=== PATIENT | female | born 1990 | race Caucasian/White ===

== ENCOUNTER 2018-07-29 19:35 | Emergency (ER) | payer BC, OTHER ==
[~2018-07-29] VITALS: Ht 170.2 cm; Wt 126.0 kg
[~2018-07-29 19:35] MED LIST: CLIN-96 PO; LISI-600 PO; ONDA4TAB6 PO; TRIA1CAP6 PO
--- NOTE | 2018-07-29 20:00 | NUR ---
Pt's brought pt in due to SI. Pt has had medication change which she is not tolerating and cannot get in to see soon enoughgricelda so was brought here.
[2018-07-29] MEDS ORDERED: RISP2TAB3 PO (20:11)
[2018-07-29] MEDS ORDERED: LOSA100T57 PO (20:11)
[2018-07-29] MEDS ORDERED: ESCI20TA38 PO (20:11)
[2018-07-29] MEDS ORDERED: RISP1TAB3 PO (20:11)
[2018-07-29] MEDS ORDERED: ALBU18HF2 IH (20:13)
[2018-07-29 20:16] LABS: BASOPHILS % (AUTO) 0.5 % (0-1); EOSINOPHILS # (AUTO) 0.2 X10'3 (0-0.9); EOSINOPHILS % (AUTO) 1.9 % (0-6); HEMATOCRIT 41.7 % (35.0-45.0); HEMOGLOBIN 14.6 g/dl (12.0-16.0); LYMPHOCYTES # (AUTO) 3.4 X10'3 (1.1-4.8); LYMPHOCYTES % (AUTO) 33.3 % (21-51); MEAN CORPUSCULAR HEMOGLOBIN 29.8 PG (27.0-31.0); MEAN CORPUSCULAR VOLUME 85.1 FL (78-98); MEAN PLATELET VOLUME 8.3 FL (7.4-10.4); MONOCYTES # (AUTO) 0.7 X10'3 (0-0.9); MONOCYTES % (AUTO) 6.8 % (2-12); NEUTROPHILS # (AUTO) 5.9 X10'3 (1.8-7.7); NEUTROPHILS % (AUTO) 57.5 % (42-75); PLATELET COUNT 302 X10'3 (140-440); RED CELL DISTRIBUTION WIDTH 12.9 % (11.5-14.5); WHITE BLOOD COUNT 10.2 X10'3 (4.5-11.0)
[2018-07-29 20:25] LABS: ALANINE AMINOTRANSFERASE 79 U/L (12-78); ALBUMIN 3.8 G/DL (3.4-5.0); ALBUMIN/GLOBULIN RATIO 0.9 (1.1-1.5); ALKALINE PHOSPHATASE 86 IU/L (46-116); ANION GAP 10 (8-16); ASPARTATE AMINO TRANSFERASE 34 U/L (10-37); BILIRUBIN,TOTAL 0.2 MG/DL (0.1-1.0); BLOOD UREA NITROGEN 12 MG/DL (7-18); BUN/CREATININE RATIO 16.4 (6.6-38.0); CALCIUM 9.3 MG/DL (8.5-10.1); CHLORIDE 106 MMOL/L (99-107); CREATININE 0.73 MG/DL (0.40-0.90); GLUCOSE 101 MG/DL (70-104); POTASSIUM 3.7 MMOL/L (3.5-5.1); SODIUM 141 MMOL/L (135-145); TOTAL CARBON DIOXIDE 25.1 MMOL/L (24-32); TOTAL PROTEIN 7.9 G/DL (6.4-8.2); eGFR > 90 ML/MIN
[2018-07-29 20:34] LABS: ETHANOL < 0.010 GM/DL (0.0-0.010)
[2018-07-29 20:40] LABS: UA COLLECTION TYPE CLN CATCH MIDSTREAM
[2018-07-29 20:41] LABS: CLARITY,URINE CLEAR (Clear); COLOR,URINE YELLOW (Yellow); GLUCOSE, URINE NEGATIVE (Neg); KETONES,URINE NEGATIVE (Neg); LEUKOCYTE ESTERASE ,URINE NEGATIVE (Neg); NITRITES, URINE NEGATIVE (Neg); OCCULT BLOOD,URINE NEGATIVE (Neg); PROTEIN,URINE NEGATIVE (Neg); UROBILINOGEN,URINE 0.2 E.U/dL (0.2-1.0)
[2018-07-29 20:42] LABS: URINE HCG NEGATIVE (NEG)
[2018-07-29 20:53] LABS: URINE AMPHETAMINE SCREEN NEGATIVE (Neg); URINE BARBITUATE SCREEN NEGATIVE (Neg); URINE BENZODIAZEPINES SCREEN NEGATIVE (Neg); URINE CANNABINOID SCREEN NEGATIVE (Neg); URINE COCAINE SCREEN NEGATIVE (Neg); URINE METHADONE SCREEN NEGATIVE (Neg); URINE OPIATE SCREEN NEGATIVE (Neg); URINE PHENCYCLIDINE SCREEN NEGATIVE (Neg)
[2018-07-29] MEDS ORDERED: risperiDONE 2mg tablet PO SCH (21:00)
--- NOTE | 2018-07-29 21:00 | NUR ---
Pt resting quietly, respirations normal, no s/s of distress.
--- NOTE | 2018-07-29 22:00 | NUR ---
Pt resting quietly, respirations normal, no s/s of distress.
--- NOTE | 2018-07-29 23:00 | NUR ---
Taty martinez in [facility] - 07/30/18 at 0406 by MARIA DEL CARMEN Pt does not want visitors or phone calls at this time.
--- NOTE | 2018-07-29 23:51 | NUR ---
Pt resting quietly, respirations normal, no s/s of distress.
[2018-07-30] MEDS ORDERED: albuterol 2.5 MG/3 ML nebule NEB PRN
--- NOTE | 2018-07-30 01:28 | NUR ---
Pt resting quietly, respirations normal, no s/s of distress.
--- NOTE | 2018-07-30 03:02 | NUR ---
Pt resting quietly, respirations normal, no s/s of distress.
--- NOTE | 2018-07-30 04:06 | NUR ---
Pt resting quietly, respirations normal, no s/s of distress.
--- NOTE | 2018-07-30 04:53 | NUR ---
Pt resting quietly, respirations normal, no s/s of distress.
--- NOTE | 2018-07-30 07:00 | NUR ---
Pt sitting up in bed, calm and cooperative.
[2018-07-30] MEDS: lisinopril 20mg tablet PO SCH ×2 (07:20→07:24)
[2018-07-30] MEDS ORDERED: CHLO25TA2 PO (07:23)
[2018-07-30] MEDS ORDERED: losartan 50mg tablet PO SCH (08:00)
[2018-07-30] MEDS ORDERED: chlorthalidone 25mg tablet PO SCH (08:00)
[2018-07-30] MEDS ORDERED: citalopram 20mg tablet PO SCH (08:00)
[2018-07-30] MEDS ORDERED: risperiDONE 0.5mg tablet PO SCH (08:00)
--- NOTE | 2018-07-30 09:00 | NUR ---
visiting at bedside.
--- NOTE | 2018-07-30 11:00 | NUR ---
Pt visiting with at bedside.
--- NOTE | 2018-07-30 13:00 | NUR ---
Sitting up in bed eating lunch.
--- NOTE | 2018-07-30 13:38 | NUR ---
MARLON FROM [facility] AT BEDSIDE AT THIS TIME TO SPEAK WITH PATIENT. PATIENT CALM AND COOPERATIVE AT THIS TIME, IN VIEW OF STAFF AT ALL TIMES.
[2018-07-30 15:36] VITALS: BP 157/101
== END 2018-07-30 15:38 | disposition home or self-care (01) ==
LOC: EEVIPCON 19:35 → ER 19:40
DX: R45.851 Suicidal ideations (principal); F41.9 Anxiety disorder, unspecified; I10 Essential (primary) hypertension; Z86.14 Personal history of Methicillin resistant Staphylococcus aureus infection; Z98.890 Other specified postprocedural states; Z88.1 Allergy status to other antibiotic agents; Z79.899 Other long term (current) drug therapy
CPT/HCPCS: 36415; 80053; 80305; 80320; 81003; 81025; 84443; 85025; 99284

== ENCOUNTER 2021-04-24 18:57 | Emergency (ER) | payer OTHER ==
[~2021-04-24] VITALS: Ht 170.2 cm; Wt 113.6 kg
[~2021-04-24 18:57] MED LIST changes: +ALBU18HF2 IH; +CHLO25TA2 PO; -CLIN-96 PO; +ESCI20TA39 PO; -LISI-600 PO; +LISI20TA28 PO; +LOSA100T57 PO; -ONDA4TAB6 PO; +RISP1TAB98 PO; +RISP2TAB85 PO; -TRIA1CAP6 PO
[2021-04-24 19:11] VITALS: BP 158/102
== END 2021-04-24 23:47 | disposition left against medical advice (07) ==
LOC: ER 18:57
DX: I10 Essential (primary) hypertension (principal); H53.9 Unspecified visual disturbance; Z53.21 Procedure and treatment not carried out due to patient leaving prior to being seen by health care provider

== ENCOUNTER 2024-11-23 20:41 | Emergency (ER) | payer BC, MEDICAID ==
[~2024-11-23] VITALS: Ht 170.2 cm; Wt 130.8 kg
[~2024-11-23 20:41] MED LIST changes: -LOSA100T57 PO; +LOSA100T58 PO; +RISP-31 PO; +RISP-32 PO; -RISP1TAB98 PO; -RISP2TAB85 PO
[2024-11-23 20:49] VITALS: TEMP 97.5
--- NOTE | 2024-11-23 20:56 | ELECTROCARDIOGRAPH REPORT ---
[facility] Test Date: 2024-11-23 Test Time: 20:54:36 Pat Name: BAYRON NDIAYE Department: EMERGENCY ROOM Room: Gender: F Bar Catcher: PM : 1990 Requested By: CASSIA COSBY Order Number: [id number] Reading MD: Measurements Intervals Pedro Rate: 59 P: 35 [place]: 164 QRS: -25 QRSD: 100 T: 38 QT: 429 QTc: 425 Interpretive Statements Sinus bradycardia Borderline left axis deviation Probable anterior infarct, age indeterminate Baseline wander in lead(s) V4,V5,V6 Please click the below link to view image of tracing.
[2024-11-23 21:17] LABS: MEAN PLATELET VOLUME 7.8 FL (7.4-10.4); RED CELL DISTRIBUTION WIDTH 12.8 % (11.5-14.5)
--- NOTE | 2024-11-23 21:27 | RADIOLOGY REPORT ---
EXAM: DI CHEST,SINGLE VIEW CLINICAL HISTORY: CP TECHNIQUE: Single AP view of the chest WID: COMPARISON: None FINDINGS: Lines and tubes: None Chest: The heart size and pulmonary vasculature is within normal limits. No pleural effusion, pneumothorax, or consolidation. The osseous structures are grossly intact. IMPRESSION: 1. No acute cardiopulmonary abnormality.
[2024-11-23 21:31] LABS: CREATININE 0.78 MG/DL (0.40-0.90); PRO BRAIN NATRIURETIC PEPTIDE 64 PG/ML (0-125); TOTAL CARBON DIOXIDE 29.0 MMOL/L (24-32); eCRCL 101 ML/MIN; eGFR 86 ML/MIN
[2024-11-23 23:18] VITALS: BP 160/93; PULSE 60; RESP 15; O2SAT 99
--- NOTE | 2024-11-23 23:38 | Physician Documentation ---
History of Present Illness ~ Chief Complaint: Chest Pain Stated Complaint: CP Time Seen by MD: 22:28 Primary Medical Doctor: Dr Victor ([facility]) HPI Patient is a 34-year-old female that presents to the emergency department for evaluation of chest pain times several hours today. Reports that she has significant anxiety and takes hydroxyzine to help with her anxiety. Reports that she took her hydroxyzine today but she still feels anxious and still has chest pain at this time. Patient denies any nausea vomiting shortness of breath. Reports she does have hypertension and she is currently out of her medication. Patient reports that she has a an appointment with her primary care provider to have her antihypertensives refilled tomorrow. Medication Reconciliation Allergies: Coded Allergies: amoxicillin (Verified Allergy, Unknown, 07/30/18) lisinopril (Verified Allergy, Unknown, coughing, 07/30/18) watermelon (Verified Allergy, Unknown, flares up ulcerative colitis, 07/30/18) Scheduled Chlorthalidone (Chlorthalidone), 1 TAB PO DAILY, (Reported) Escitalopram Oxalate (Escitalopram Oxalate), 20 MG PO DAILY, (Reported) Lisinopril (Lisinopril), 1 TABLET PO DAILY, (Reported) Losartan Potassium (Losartan Potassium), 100 MG PO DAILY, (Reported) Risperidone (Risperidone), 1 TAB PO DAILY, (Reported) Risperidone (Risperidone), 1 TAB PO HS, (Reported) Scheduled PRN Albuterol Sulfate (Ventolin Hfa), 18 G IH PRN PRN for SOB or wheezing, (Reported) Past Medical History Past Medical History: Headache, Hypertension, MRSA Abscess, Anxiety, Depression Past Surgical History: other Alcohol Use: None Drug Use: none Lives with: Spouse Occupation: other Review of Systems ROS As stated above in the HPI, otherwise all systems are reviewed and negative. Physical Exam Vital Signs: Temperature: 97.5, Source: Temporal, Heart Rate: 60, Respiratory Rate: 15, BP: 160/93, Pulse Oximetry: 99, Weight: 130.800 Oxygen Flow Rate: 0 Physical Exam VITALS: Reviewed and as above. GENERAL: Alert, no apparent distress. HEENT: Normocephalic, atraumatic, PERRL, EOMI, dry mucosa, no erythema RESPIRATORY: Lungs clear, normal breath sounds, no respiratory distress. CHEST: No accessory muscle use, no retractions CV: Regular rate, rhythm, no edema, no murmur, No: JVD GI: Soft, non-tender, bowels sounds present, no rebound, guarding, or rigidity BACK: No CVA tenderness, or swelling MUSCULOSKELETAL No deformities, no edema SKIN: Warm and dry, no rash NEURO: Oriented x4, No motor or sensory deficit PSYCH: Normal mood and affect, no agitation Progress Results/Orders Results/Orders Completed Orders - LUCÍA IQBAL Clonidine Tablet (Catapres Tablet) (11/23/24 22:30) Medications Received in ER Medications (Trade) Dose Ordered Sig/Aman Route PRN Reason Start Time Stop Time Status Last Admin Dose Admin (Catapres tablet) 0.1 mg ONCE ONCE PO 11/23/24 22:30 11/23/24 22:31 DC 11/23/24 22:44 0.1 MG Vital Signs 11/23/24 11/23/24 20:49 23:18 Temp 97.5 Pulse 62 60 Resp 18 15 B/P (MAP) 175/102 160/93 (115) Pulse Ox 97 99 O2 Flow Rate 0 Laboratory Tests Test 11/23/24 20:59 11/23/24 23:06 White Blood Count 12.5 H Red Blood Count 5.23 Hemoglobin 15.3 Hematocrit 44.2 Mean Corpuscular Volume 84.5 Mean Corpuscular Hemoglobin 29.3 Mean Corpuscular Hemoglobin Concent 34.6 Red Cell Distribution Width 12.8 Platelet Count 371 Mean Platelet Volume 7.8 Neutrophils (%) (Auto) 66.7 Lymphocytes (%) (Auto) 25.1 Monocytes (%) (Auto) 5.6 Eosinophils (%) (Auto) 2.2 Basophils (%) (Auto) 0.4 Neutrophils # (Auto) 8.3 H Lymphocytes # (Auto) 3.1 Monocytes # (Auto) 0.7 Eosinophils # (Auto) 0.3 Basophils # (Auto) 0.1 CBC Comment Sodium Level 143 Potassium Level 3.9 Chloride Level 106 Carbon Dioxide Level 29.0 Anion Gap 8 Blood Urea Nitrogen 9 Creatinine 0.78 Estimated GFR/1.73 m2 86 BUN/Creatinine Ratio 11.5 Glucose Level 119 H Calcium Level 9.0 Troponin I High Sensitivity < 4 L Troponin I High Sens Percent Delta Troponin I Hi Sens Absolute Change Pro-B-Type Natriuretic Peptide 64 Albumin 3.6 Chemistry Comments Medical Decision Making Findings This patient presents with symptoms consistent with acute anxiety reaction / panic attack. Low suspicion for acute cardiopulmonary process including ACS, PE, or thoracic aortic dissection 12 lead troponin history are all negative for any abnormalities or concerning findings at this time. Patient does present with moderate hypertension with a systolic blood pressures in the 170s. Patient given 0.1 mg of clonidine to help with her anxiety and to reduce her blood pressure with good success. Denies any ingestions or any other medical complaints. No evidence of alcohol withdrawal symptoms. Given history and physical presentation not consistent with overt toxidrome, ingestion. Presentation not consistent with a medical emergency at this time. No acute indication for psychiatric consultation (without SI/HI, AH/VH). Cautious return precautions discussed with full understanding. Patient is a patient's prescribing a limited prescription of Valium until she can follow up with her primary care provider regarding her anxiety. Patient has an appointment in the morning at 8:30 a.m. to have her losartan refilled not start antihypertensives here in the emergency department is a patient with a prescription. Patient will follow up with the primary care provider. Patient will return to the emergency department with any worsening or recurrent symptoms or any additional concerning symptoms that we discussed here today i.e. increased chest pain increased shortness of breath lightheadedness syncopal episodes numbness tingling or any other concerning symptoms. Differential Dx:Considerations: Include: angina, aortic dissection, chest wall pain, cholelithiasis, CHF, costochondritis, esophageal reflux/spasm, gastritis, herpes zoster, myocardial infarction, pericarditis, pleuritis, pancreatitis, pneumonia, pneumothorax, pulmonary embolus, other Departure Disposition: 01 HOME / SELF CARE / HOMELESS Impression: Primary Impression: Anxiety Additional Impressions: Hypertension Chest discomfort Condition: Stable Discharge Instructions: Generalized Anxiety Disorder, Adult Additional Instructions: This patient presents with symptoms consistent with acute anxiety reaction / panic attack. Low suspicion for acute cardiopulmonary process including ACS, PE, or thoracic aortic dissection 12 lead troponin history are all negative for any abnormalities or concerning findings at this time. Patient does present with moderate hypertension with a systolic blood pressures in the 170s. Patient given 0.1 mg of clonidine to help with her anxiety and to reduce her blood pressure with good success. Denies any ingestions or any other medical complaints. No evidence of alcohol withdrawal symptoms. Given history and physical presentation not consistent with overt toxidrome, ingestion. Presentation not consistent with a medical emergency at this time. No acute indication for psychiatric consultation (without SI/HI, AH/VH). Cautious return precautions discussed with full understanding. Patient is a patient's prescribing a limited prescription of Valium until she can follow up with her primary care provider regarding her anxiety. Patient has an appointment in the morning at 8:30 a.m. to have her losartan refilled not start antihypertensives here in the emergency department is a patient with a prescription. Patient will follow up with the primary care provider. Patient will return to the emergency department with any worsening or recurrent symptoms or any additional concerning symptoms that we discussed here today i.e. increased chest pain increased shortness of breath lightheadedness syncopal episodes numbness tingling or any other concerning symptoms. Referrals: NO PRIMARY CARE PROVIDER (PCP) Prescriptions Diazepam (Diazepam) 5 Mg Tablet 1 TAB PO Q12H PRN PRN for anxiety for 30 Days, #60 TAB 0 Refills Prov: LUCÍA IQBAL 11/23/24 Education Educated: Patient Educated regarding: diagnosis, treatment, need for follow up Signature Scribe Signature: A Attestation: Scribed for Lucía Iqbal by COURTNEY Roberson . 11/23/24 23:42 LUCÍA IQBAL Nov 23, 2024 23:38
[2024-11-23] MEDS ORDERED: DIAZ-351 PO (23:41)
== END 2024-11-23 23:52 | disposition home or self-care (01) ==
LOC: ER 20:41
DX: I10 Essential (primary) hypertension (principal); F41.9 Anxiety disorder, unspecified; F32.A Depression, unspecified; Z86.14 Personal history of Methicillin resistant Staphylococcus aureus infection; Z88.8 Allergy status to other drugs, medicaments and biological substances; Z91.018 Allergy to other foods; Z88.1 Allergy status to other antibiotic agents; Z79.899 Other long term (current) drug therapy
CPT/HCPCS: 36415; 71045; 80048; 83880; 84484; 85025; 93005; 99285